=== PATIENT | female | born 1980 | race American Indian/Alaskan Native ===

== ENCOUNTER 2017-03-08 14:34 | Emergency (ER) | payer SELFPAY ==
--- NOTE | 2017-03-08 14:40 | Emergency Department Report ---
Stated Complaint: BLEEDING WHILE Time Seen by Provider: 03/08/17 14:37 - HPI History of Present Illness: PT states she is a month or so . PT states she had test last week in [facility] office. US scheduled 03-23-17 PT c/o vaginal bleeding x 20 minutes. PT states she had sex last night. - ROS Review of Systems: + vaginal bleeding - Exam Physical Exam: pt tearful and anxious MSE screening note: Focused history and physical exam performed. Due to findings the following was ordered: labs, us ED Disposition for MSE Condition: Stable
[2017-03-08 14:41] VITALS: BP 148/89
[2017-03-08 15:13] LABS: Basophils % (Auto) 0.8 % (0.0-1.8); Eosinophils % (Auto) 0.6 % (0.0-4.3); Hematocrit 33.6 % (30.3-42.9); Hemoglobin 11.2 gm/dl (10.1-14.3); Mean Corpuscular HGB Conc 34 % (30-34); Mean Corpuscular Hemoglobin 28 pg (28-32); Mean Corpuscular Volume 84 fl (79-97); Platelet Count 334 K/mm3 (140-440); Red Blood Count 3.99 M/mm3 (3.65-5.03); Red Cell Distribution Width 17.7 % (13.2-15.2); White Blood Count 9.9 K/mm3 (4.5-11.0)
[2017-03-08 15:35] LABS: Alanine Aminotransferase 11 units/L (7-56); Albumin 4.6 g/dL (3.9-5); Albumin/Globulin Ratio 1.5 %; Alkaline Phosphatase 42 units/L (35-129); Anion Gap 17 mmol/L; BUN/Creatinine Ratio 13; Blood Urea Nitrogen 8 mg/dL (7-17); Calcium 9.5 mg/dL (8.4-10.2); Carbon Dioxide 23 mmol/L (22-30); Chloride 98.5 mmol/L (98-107); Glucose 95 mg/dL (65-100); Potassium 3.8 mmol/L (3.6-5.0); Sodium 135 mmol/L (137-145); Total Protein 7.7 g/dL (6.3-8.2)
--- NOTE | 2017-03-08 16:45 | Ultrasound Report ---
Transabdominal and transvaginal OB ultrasound. History: Vaginal bleeding. The patient's serum hCG at the time of this study is 3829. Findings: A single intrauterine gestational sac is identified. The gestational sac measures 5.9 mm in diameter which would correspond to gestational age of 5 weeks and 2 days. A pole is not identified at this time. The right ovary is normal. There is a 1.8 cm in diameter complex area in the left ovary. There is no fluid within the cul-de-sac. Impression: Intrauterine gestational sac probably representing a very early IUP although a pole or yolk sac are not identified at this time. A short-term followup study may be useful.
== END 2017-03-08 17:39 | disposition left against medical advice (07) ==
LOC: ED 14:34
DX: Z53.21 Procedure and treatment not carried out due to patient leaving prior to being seen by health care provider (principal)
CPT/HCPCS: 36415; 76801; 76817; 80053; 84702; 85025; 86900; 86901